=== PATIENT | female | born 2000 | race Hispanic/Latino ===

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

== ENCOUNTER 2018-03-12 04:33 | Inpatient (IN) | payer MEDICAID, OTHER ==
--- NOTE | 2018-03-12 05:10 | ED PDOC ---
Arrival/HPI - General Chief Complaint: Psychiatric Evaluation Time Seen by Provider: 03/12/18 04:43 Historian: Patient - History of Present Illness Narrative History of Present Illness (Text): 03/12/18 05:07 Sailaja Jacinto is a 17 year old female, whose past medical history includes hyperthyroidism, who presents to the emergency department complaining of depression. Patient states she has been feeling depressed for a while and has been experiencing suicidal ideation. Patient reports she wants to strangle herself with a shoestring. Patient denies any homicidal ideation, fevers, chills , chest pain, shortness of breath, abdominal pain, nausea, vomiting, diarrhea, back pain, neck pain, urinary symptoms, headache, dizziness, or any other complaint. Symptom Onset: Gradual Symptom Course: Unchanged Activities at Onset: Light Context: Home Past Medical History - Provider Review Nursing Documentation Reviewed: Yes - Cardiac Hx Cardiac Disorders: No - Pulmonary Hx Respiratory Disorders: No - Neurological Hx Neurological Disorder: No - HEENT Hx HEENT Disorder: No - Endocrine/Metabolic Hx Endocrine Disorders: Yes Hx Hyperthyroidism: Yes Hx Hypothyroidism: Yes - Hematological/Oncological Hx Blood Disorders: No - Integumentary Hx Dermatological Disorder: No - Musculoskeletal/Rheumatological Hx Musculoskeletal Disorders: No - Gastrointestinal Hx Gastrointestinal Disorders: No - Genitourinary/Gynecological Other/Comment: ectopic - Psychiatric Hx Anxiety: Yes Hx Depression: Yes Hx Substance Use: No - Anesthesia Hx Anesthesia: No Family/Social History - Physician Review Nursing Documentation Reviewed: Yes Family/Social History: Unknown Family HX Smoking Status: Never Smoked Hx Alcohol Use: No Hx Substance Use: No Allergies/Home Meds Allergies/Adverse Reactions: Allergies No Known Allergies Allergy (Verified 08/20/17 01:58) Home Medications: Home Meds Medication Instructions Recorded Confirmed No Known Home Med 03/12/18 03/12/18 Review of Systems - Physician Review All systems were reviewed & negative as marked: Yes - Review of Systems Constitutional: Normal. absent: Fevers Eyes: Normal ENT: Normal Respiratory: Normal. absent: SOB, Cough Cardiovascular: Normal. absent: Chest Pain Gastrointestinal: Normal. absent: Abdominal Pain, Diarrhea, Nausea, Vomiting Genitourinary Female: Normal. absent: Dysuria, Frequency, Hematuria, Urine Output Changes Musculoskeletal: Normal. absent: Back Pain, Neck Pain Skin: Normal. absent: Rash Neurological: Normal. absent: Headache, Dizziness Endocrine: Normal Hemo/Lymphatic: Normal Psychiatric: Depression, Suicidal Ideation Physical Exam Vital Signs Reviewed: Yes Vital Signs Temp Pulse Resp BP Pulse Ox 03/12/18 04:44 98.1 F 72 16 117/69 99 Temperature: Afebrile Blood Pressure: Normal Pulse: Regular Respiratory Rate: Normal Appearance: Positive for: Well-Appearing, Non-Toxic, Comfortable Pain Distress: None Mental Status: Positive for: Alert and Oriented X 3 - Systems Exam Head: Present: Atraumatic, Normocephalic Pupils: Present: PERRL Extroacular Muscles: Present: EOMI Conjunctiva: Present: Normal Mouth: Present: Moist Mucous Membranes Neck: Present: Normal Range of Motion Respiratory/Chest: Present: Clear to Auscultation, Good Air Exchange. No: Respiratory Distress, Accessory Muscle Use Cardiovascular: Present: Regular Rate and Rhythm, Normal S1, S2. No: Murmurs Abdomen: No: Tenderness, Distention, Peritoneal Signs Back: Present: Normal Inspection Upper Extremity: Present: Normal Inspection. No: Cyanosis, Edema Lower Extremity: Present: Normal Inspection. No: Edema Neurological: Present: GCS=15, CN II-XII Intact, Speech Normal Skin: Present: Warm, Dry, Normal Color. No: Rashes Psychiatric: Present: Alert, Oriented x 3, Normal Insight, Normal Concentration. No: Normal Affect (Flat affect) Medical Decision Making ED Course and Treatment: 03/12/18 05:07 Impression: 17 year old female complaining of depression and suicidal ideation. Plan: -- EKG -- CXR -- Labs, alcohol level -- UA, urine drug screen -- Reassess and disposition Progress Notes: Reviewed EKG, sinus bradycardia at 56 bpm. Sinus arrhythmia. No acute changes. 03/12/18 07:00 Case endorsed to /pending PES evaluation/final disposition - Lab Interpretations Lab Results: 03/12/18 05:28 03/12/18 05:28 Lab Results 03/12/18 05:28: WBC 9.9, RBC 4.28, Hgb 12.8, Hct 37.7, MCV 88.1, MCH 29.9, MCHC 34.0, RDW 13.4, Plt Count 273, MPV 9.5 03/12/18 05:28: Alcohol, Quantitative < 10 03/12/18 05:28: Sodium 140, Potassium 3.6, Chloride 103, Carbon Dioxide 27, Anion Gap 14, BUN 16, Creatinine 0.6 L, Est GFR ( Amer) > 60, Est GFR ( Non-Af Amer) > 60, Random Glucose 99, Calcium 9.3, Total Bilirubin 0.8, AST 28, ALT 16, Alkaline Phosphatase 53, Total Protein 7.5, Albumin 4.4, Globulin 3.1, Albumin/Globulin Ratio 1.4 03/12/18 05:00: Urine Color Straw, Urine Appearance Sl cloudy, Urine pH 6.0, Ur Specific [place] 1.010, Urine Protein Negative, Urine Glucose (UA) Negative, Urine Ketones Negative, Urine Blood Trace-intact H, Urine Nitrate Negative, Urine Bilirubin Negative, Urine Urobilinogen 0.2, Ur Leukocyte Esterase Small H , Urine RBC Pending, Urine WBC Pending, Urine HCG, Qual Negative - RAD Interpretation Narrative RAD Interpretations (Text): 03/12/18 06:17 CXR- No acute process Radiology Orders: 03/12/18 05:10 CHEST PORTABLE [RAD] Stat Groutman: ED Physician - EKG Interpretation Interpreted by ED Physician: Yes Type: 12 lead EKG - Scribe Statement The provider has reviewed the documentation as recorded by the Nishaibjoaquín Verma Provider Scribe Attestation: All medical record entries made by the Scribe were at my direction and personally dictated by me. I have reviewed the chart and agree that the record accurately reflects my personal performance of the history, physical exam, medical decision making, and the department course for this patient. I have also personally directed, reviewed, and agree with the discharge instructions and disposition. Disposition/Present on Arrival - Present on Arrival Any Indicators Present on Arrival: No History of DVT/PE: No History of Uncontrolled Diabetes: No Urinary Catheter: No History of Decub. Ulcer: No History Surgical Site Infection Following: None - Disposition Have Diagnosis and Disposition been Completed?: No Diagnosis: Depression, Suicidal ideation Disposition Time: 07:00 Condition: STABLE Forms: [employer] (Maldivian)
[2018-03-12 06:06] LABS: URINE BILIRUBIN NEGATIVE (NEGATIVE); URINE BLOOD TRACE-INTACT (NEGATIVE); URINE GLUCOSE (UA) NEGATIVE (NEGATIVE); URINE LEUKOCYTE ESTERASE SMALL Leu/uL (NEGATIVE); URINE PROTEIN NEGATIVE mg/dL (<30 mg/dL); URINE UROBILINOGEN 0.2 E.U./dL (<1 E.U./dL)
[2018-03-12 06:07] LABS: HEMOGLOBIN 12.8 g/dL (12.0-16.0); MEAN CELL VOLUME 88.1 fl (80.0-105.0); MEAN CORPUSCULAR HEMOGLOBIN 29.9 pg (25.0-35.0); MEAN PLATELET VOLUME 9.5 fl (7.0-11.0); RBC 4.28 10^6/uL (3.5-6.1); RED CELL DISTRIBUTION WIDTH 13.4 % (11.5-14.5); WHITE BLOOD COUNT 9.9 10^3/ul (4.5-11.0)
[2018-03-12 06:08] LABS: URINE APPEARANCE SL CLOUDY (CLEAR); URINE COLOR STRAW (YELLOW)
[2018-03-12 06:10] LABS: HCG,QUALITATIVE URINE NEGATIVE (NEGATIVE)
[2018-03-12 06:15] LABS: ALB/GLOB RATIO 1.4 (1.1-1.8); ALBUMIN 4.4 g/dL (3.0-4.8); ALT/SGPT 16 U/L (7-56); AST/SGOT 28 U/L (14-36); BLOOD UREA NITROGEN 16 mg/dL (7-21); CALCIUM 9.3 mg/dL (8.4-10.5); GFR AFRICAN-AMERICAN > 60; GFR NON-AFRICAN AMERICAN > 60
[2018-03-12 06:20] LABS: URINE BACTERIA RARE (NEG); URINE RBC 0 - 2 /hpf (0-2)
[2018-03-12 07:08] LABS: BARBITURATES, UR NEGATIVE (NEGATIVE); BENZODIAZEPINES, UR NEGATIVE (NEGATIVE); OPIATES, UR NEGATIVE (NEGATIVE); PHENCYCLIDINE, UR NEGATIVE (NEGATIVE)
--- NOTE | 2018-03-12 07:15 | ED PDOC ---
Physical Exam - Physical Exam Narrative Physical Exam (Text): 03/12/18 0800 General: alert/awake, GCS = 15, oriented x 3, resting in bed, uncomfortable, cooperative, interactive; NAD Head: NC/AT EYE: PERRLA, EOMI, sclera anicteric, no nystagmus, no photophobia Facial: WNL Oral: uvula/tongue are midline, no exudate/lesions, no drooling/stridor, no dysphonia; intact dentitions NECK: intact ROM, no midline tenderness, no nuchal rigidity, no meningeal signs ; no step off Chest: CTA b/l, no w/r/r; no tachypenia, no accessory muscle use noted Chest Wall: no focal tenderness, no gross deformities, no crepitus, no lesions/ rashes noted Cardiac: +S1, +S2, no m/r/r, no tachycardia Abdominal: +BS, soft/nd/nt, well nourished patient; no masses/rebound/guarding/ rigidity; no mcmahon's sign, no mcburney's point tenderness Extremities: intact ROM, strength 5/5 grossly intact in all limbs, neurovasc intact b/l; + ambulatory; reflex +2/2 BACK: no step off, no midline tenderness, NO crepitus, no gross deformities noted; Intact ROM SKIN: cap refill < 1 sec, no ulcerations, no petechiae, no rashes NEURO: CNII-XII WNL, no facial asymmetries, no slurr speech, oriented x 3 NIH stroke scale ~ 0 Psych: normal insight, flat affect; follows command with ease Vital Signs Reviewed: Yes Vital Signs Temp Pulse Resp BP Pulse Ox 03/12/18 07:32 97.6 F 71 16 106/63 98 03/12/18 04:44 98.1 F 72 16 117/69 99 Temperature: Afebrile Blood Pressure: Normal Pulse: Regular Respiratory Rate: Normal Appearance: Positive for: Well-Appearing, Uncomfortable Pain Distress: None Mental Status: Positive for: Alert and Oriented X 3 - Systems Exam Head: Present: Atraumatic, Normocephalic Medical Decision Making ED Course and Treatment: 03/12/18 07:15 Case endorsed to me by Dr. Gallo, pending PES/Crisis counselor for further evaluation and disposition. Patient medically cleared by previous attending. 03/12/18 09:13 [facility] pt is made aware of her medical results agrees with admission Re-evaluation Time: 09:00 Reassessment Condition: Unchanged - Lab Interpretations Lab Results: 03/12/18 05:28 03/12/18 05:28 Lab Results 03/12/18 05:28: WBC 9.9, RBC 4.28, Hgb 12.8, Hct 37.7, MCV 88.1, MCH 29.9, MCHC 34.0, RDW 13.4, Plt Count 273, MPV 9.5 03/12/18 05:28: Alcohol, Quantitative < 10 03/12/18 05:28: Sodium 140, Potassium 3.6, Chloride 103, Carbon Dioxide 27, Anion Gap 14, BUN 16, Creatinine 0.6 L, Est GFR ( Amer) > 60, Est GFR ( Non-Af Amer) > 60, Random Glucose 99, Calcium 9.3, Total Bilirubin 0.8, AST 28, ALT 16, Alkaline Phosphatase 53, Total Protein 7.5, Albumin 4.4, Globulin 3.1, Albumin/Globulin Ratio 1.4 03/12/18 05:00: Urine Opiates Screen Negative, Urine Methadone Screen Negative, Ur Barbiturates Screen Negative, Ur Phencyclidine Scrn Negative, Ur Amphetamines Screen Negative, U Benzodiazepines Scrn Negative, U Oth Cocaine Metabols Negative, U Cannabinoids Screen Negative 03/12/18 05:00: Urine Color Straw, Urine Appearance Sl cloudy, Urine pH 6.0, Ur Specific [place] 1.010, Urine Protein Negative, Urine Glucose (UA) Negative, Urine Ketones Negative, Urine Blood Trace-intact H, Urine Nitrate Negative, Urine Bilirubin Negative, Urine Urobilinogen 0.2, Ur Leukocyte Esterase Small H , Urine RBC 0 - 2, Urine WBC 1 - 3, Ur Epithelial Cells 1 - 3, Urine Bacteria Rare, Urine HCG, Qual Negative I have reviewed the lab results: Yes Interpretation: All labs normal - RAD Interpretation Narrative RAD Interpretations (Text): 03/12/18 09:13 Chest X-ray - NAD, prelim result Radiology Orders: 03/12/18 05:10 CHEST PORTABLE [RAD] Stat Insurance Underwriter: ED Physician Disposition/Present on Arrival - Present on Arrival Any Indicators Present on Arrival: No History of DVT/PE: No History of Uncontrolled Diabetes: No Urinary Catheter: No History of Decub. Ulcer: No History Surgical Site Infection Following: None - Disposition Have Diagnosis and Disposition been Completed?: Yes Diagnosis: Depression, Suicidal ideation Disposition: HOSPITALIZED Disposition Time: 09:00 Patient Plan: Admission Patient Problems: Current Active Problems Problem Status Onset Depression Acute Suicidal ideation Acute Condition: STABLE Forms: [employer] ([place])
[2018-03-12 07:33] VITALS: O2SAT 98
--- NOTE | 2018-03-12 10:00 | RAD ---
HISTORY: medical clearance COMPARISON: No prior. FINDINGS: LUNGS: No active pulmonary disease. PLEURA: No significant pleural effusion identified, no pneumothorax apparent. CARDIOVASCULAR: Normal. OSSEOUS STRUCTURES: No significant abnormalities. VISUALIZED UPPER ABDOMEN: Normal. OTHER FINDINGS: None. IMPRESSION: No active disease.
--- NOTE | 2018-03-12 10:53 | PCM.BM ---
<Basilio Worthy - Last Filed: 03/12/18 10:50> Treatment Plan Problems - Problems identified on initial assessmt DEPRESSIVE SYMPTOMS Date Initiated: 03/12/18 Time Initiated: 10:51 Assessment reference: HP, NA Status: Active SUICIDAL IDEATION Date Initiated: 03/12/18 Time Initiated: 10:51 Assessment reference: HP, Other Status: Active SOCIAL ISOLATION Date Initiated: 03/12/18 Time Initiated: 10:53 Assessment reference: HP, NA Treatment assets and liabiliti Patient Assests: adapts well, educated, motivated, physically healthy, negotiates basic needs, cognitively intact, good interpersonal skills Patient Liabilities: relationship conflicts - Milieu Protocol Maintain good personal hygiene: daily Encourage regular showers, daily Remind patient to perform daily oral care, daily Assist patient to perform ADL's Maintain personal safety: daily Educate patient to report safety concerns to staff, daily Monitor environment for contraband/sharps Medication safety: Monitor for expected outcome, potential side effects: daily, Assess barriers to learning: daily, Assess readiness for medication education: daily Discharge/Continuing Care - Education Needs Education Needs: Family Medication, Family Diagnosis/Disease Process, Family Coping Skills, Family Activities of Daily Living, Family Uses of Medical Equipment, Family Health Practices/Safety, Family Personal Hygiene/Grooming, Family Aftercare Safety Plan - Discharge Discharge Criteria: Free of Suicidal thoughts, Free of Homicidal thoughts, Free of paranoid thoughts, Free of agitation, Normal sleep pattern <Stacey Oconnor - Last Filed: 03/12/18 15:33> - Diagnosis (1) MDD (major depressive disorder) Status: Acute Interventions: 03/12/18 15:34 Psychoeducation Psychopharmacology/adjustment of medications as needed/ monitoring possible side effects Evaluate pt on daily basis Compliance with medications and follow up appointments Suicide and homicide risk assessment and prevention Relapse prevention Reduction of symptoms Improve functional status Family involvement As outpatient: cognitive behavioral therapy (2) Anxiety Status: Acute Interventions: 03/12/18 15:34 Psychoeducation Psychopharmacology/adjustment of medications as needed/ monitoring possible side effects Evaluate pt on daily basis Discussion of importance of being compliant with medications and follow up appointments Suicide and homicide risk assessment and prevention, coping strategies, safety plan Reduction of symptoms Relaxation techniques and breathing exercises Improve functional status Family involvement Cognitive behavioral therapy as outpatient <Emily Najera - Last Filed: 03/12/18 16:12> Family Contact Family involvement: Famliy/SO not involved - Goals for Treatment Patient goals for treatment: "I don't know."
[2018-03-12 11:03] LABS: HDL CHOLESTEROL 46 mg/dL (29-60)
[2018-03-12 11:14] LABS: LDL CHOLESTEROL 70 mg/dL (0-129)
[2018-03-12 11:18] LABS: FREE T4 0.69 ng/dL (0.78-2.19)
--- NOTE | 2018-03-12 11:31 | CARD ---
APPROVED REPORT EKG Measurement Heart [id number] <Conclusion> Sinus bradycardia with sinus arrhythmia Otherwise normal ECG
[2018-03-12] MEDS ORDERED: Alum-Mag Hydrox-Simethicone Susp (30 mL) PO PRN (15:13)
[2018-03-12] MEDS ORDERED: Magnesium Hydroxide Susp 30 ml UD PO PRN (15:13)
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
[2018-03-12 16:02] VITALS: BMI 22.3
--- NOTE | 2018-03-13 10:23 | PCM.PYCHPN ---
Psychiatric Progress Note - Psychiatric Progress Note Patient seen today, length of contact: 25 min Problems Identified/Issues Discussed: I reviewed assessment. 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 I reviewed recent notes and met with patient at bedside. Grooming is fair and she presents as alert and well-oriented to month, year, location and circumstances. Patient indicates that she is feeling good however mood is incongruent and constricted. Thought process is coherent and goal-directed. Patient reports that she is tolerating her medications thus far and denies any new discomfort or pain. Denies issues with sleep last night. Staff notes indicate that patient has been guarded, seclusive and generally looks depressed. She did not attend group. There were no behavioral issues overnight. Diagnostic Results: r/o panic disorder r/o mood disorder due to a C (hypothyroidism) Mental Status Examination - Cognitive Function Orientation: Person, Place, Situation - Mood Mood: Depressed - Affect Affect: Flat - Formal Thought Process Formal Thought Process: No Impairment - Homicidal Ideation Homicidal Ideation: No Goal/Treatment Plan - Goal/Treatment Plan Progress Toward Problem(s) and Goals/Treatment Plan: * c/w current tx and plan * Weekend lab noted below: 03/13/18 08:00 Fasting Glucose 99 * Vitals reviewed and noted below: Selected Entries 03/12/18 03/12/18 03/12/18 09:20 15:18 15:45 Temperature 98.4 F Pulse Rate 60 71 Pulse Rate [ 73 Radial] Respiratory 20 Rate Blood Pressure 107/58 L 97/57 L
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
[2018-03-14] MEDS: Levothyroxine 25 MCG TAB PO SCH ×2 (07:27→12:42)
--- NOTE | 2018-03-14 10:42 | CARD ---
APPROVED REPORT EKG Measurement Heart [id number] NM [id number] <Conclusion> Normal sinus rhythm NSSTW changes, new
--- NOTE | 2018-03-14 15:00 | PCM.PYCHPN ---
Psychiatric Progress Note - Psychiatric Progress Note Patient seen today, length of contact: 25 min Problems Identified/Issues Discussed: I have reviewed assessment. 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 I reviewed recent notes and met with patient at bedside again. Grooming is fair and she presents as alert and well-oriented to month, year, location and circumstances. Patient indicates that she is feeling good and reports improvement in mood and emotional control. Affect remains constricted. Thought process is coherent and goal-directed. There is no issue with disorganization. Patient reports that she is tolerating her medications thus far and denies any new discomfort or pain. Denies issues with sleep over the weekend. Staff notes indicate that patient has been guarded, seclusive and generally looks depressed. She is, however, demonstrating improved perspective and judgment about her current stressors. There were no behavioral issues over the weekend. Diagnostic Results: r/o panic disorder r/o mood disorder due to a C (hypothyroidism) Mental Status Examination - Cognitive Function Orientation: Person, Place, Situation - Mood Mood: Depressed - Affect Affect: Flat - Formal Thought Process Formal Thought Process: No Impairment - Homicidal Ideation Homicidal Ideation: No Goal/Treatment Plan - Goal/Treatment Plan Progress Toward Problem(s) and Goals/Treatment Plan: * c/w current tx and plan * Appreciate f/u by Dr. Brady on 03/13/18: Restarted Synthroid 25mcg PO Daily and have ordered TSH. Will f/u on EKG results. Recommend that patient should f/u with PMD and have TFTs done. * Weekend lab noted below: 03/13/18 08:00 Fasting Glucose 99 * Vitals reviewed and noted below: Selected Entries 03/14/18 07:18 Temperature 97.6 F Pulse Rate 63 Respiratory 20 Rate Blood Pressure 96/60 L
[2018-03-15 06:39] VITALS: BP 95/53; PULSE 59; RESP 16; TEMP 97.9
[2018-03-15] MEDS: Levothyroxine 25 MCG TAB PO SCH (07:07)
[2018-03-15] MEDS ORDERED: Levothyroxine 25 MCG TAB PO SCH (14:38)
--- NOTE | 2018-03-15 15:58 | CP.PCM.PN ---
<Malu Baum - Last Filed: 03/15/18 15:52> Subjective - Date & Time of Evaluation Date of Evaluation: 03/15/18 Time of Evaluation: 15:52 - Subjective Subjective: Malu Baum, PGY1, Progress Note for Dr Beltran: Patient seen and examined at bedside. No acute events overnight. Denies fever, chills, depression, hair loss, abdominal pain, leg swelling. Objective - Vital Signs/Intake and Output Vital Signs (last 24 hours): Temp Pulse Resp BP Pulse Ox 97.9 F 59 L 16 95/53 L 98 03/15/18 06:38 03/15/18 06:38 03/15/18 06:38 03/15/18 06:38 03/12/18 09:20 - Constitutional Appears: Non-toxic, No Acute Distress - Head Exam Head Exam: ATRAUMATIC, NORMOCEPHALIC - Eye Exam Eye Exam: EOMI, PERRL. absent: Conjunctival injection, Nystagmus, Scleral icterus Pupil Exam: NORMAL ACCOMODATION, PERRL. absent: Fixed, Irregular, Miosis, Unequal - ENT Exam ENT Exam: Mucous Membranes Moist - Neck Exam Neck Exam: Full ROM - Respiratory Exam Respiratory Exam: Clear to Ausculation Bilateral, NORMAL BREATHING PATTERN. absent: Accessory Muscle Use, Rales, Rhonchi, Wheezes, Respiratory Distress, Stridor - Cardiovascular Exam Cardiovascular Exam: RRR, +S1, +S2. absent: Murmur - GI/Abdominal Exam GI & Abdominal Exam: Soft, Normal Bowel Sounds. absent: Distended, Firm, Rigid , Tenderness, Mass, Organomegaly, Pulsatile Mass, Rebound - Extremities Exam Extremities Exam: Normal Inspection. absent: Calf Tenderness, Pedal Edema - Back Exam Back Exam: NORMAL INSPECTION - Neurological Exam Neurological Exam: Alert, Awake, Oriented x3 - Psychiatric Exam Psychiatric exam: Normal Affect, Normal Mood - Skin Skin Exam: Dry, Normal Color, Warm Assessment and Plan - Assessment and Plan (Free Text) Assessment: 17 year old female with a past medical history of hypothryoidism and depression who was admitted to Psychiatric unit for attempted suicide. Pt found to have abnormal thyroid function studies 2/2 medication noncompliance: Hypothyroidism: - TSH: 41.5 - Free T4: 0.69 - Patient stopped taking her medications for the past 1.5 years secondary to the side effects (weight gain). - Cont with Synthroid 25mcg PO Daily. Can increase to 50 mcg daily. Recheck thyroid studies in 4-6 weeks with primary doctor, [facility]. - PTH normal Depression: - Management per Psychiatry. Suicidal ideation: - Managment per Psychiatry. Medicine will sign off now. Please reconsult us as necessary. Case seen and discussed with Dr Beltran. Malu Baum, PGY1 <Fabby Beltran - Last Filed: 03/15/18 18:44> Objective - Vital Signs/Intake and Output Vital Signs (last 24 hours): Temp Pulse Resp BP Pulse Ox 97.9 F 59 L 16 95/53 L 98 03/15/18 06:38 03/15/18 06:38 03/15/18 06:38 03/15/18 06:38 03/12/18 09:20 Attending/Attestation - Attestation I have personally seen and examined this patient.: Yes I have fully participated in the care of the patient.: Yes I have reviewed all pertinent clinical information, including history, physical exam and plan: Yes Notes (Text): 03/15/18 18:41 Attending note; Patient seen and examined with resident in psychiatric floor. patient is alert, awake and oriented. Denies any depression. Patient with a history of hypothyroidism. Patient stopped taking Synthroid over 1 year ago. Currently started on 25 of Synthroid. Increased to 50 g. Patient will follow-up with [facility] clinic upon discharge/ or PMD of choice. Patient is strongly advised to follow-up with lab work in 6 weeks. Patient agreed with the above recommendation. patient is medically stable. Please reconsult as needed. 03/15/18 18:43
[2018-03-16] MEDS ORDERED: Levothyroxine 50 MCG TAB PO SCH (06:00)
== END 2018-03-15 14:58 | disposition home or self-care (01) | DRG 881 ==
LOC: ED 04:33 → ERH 09:09 → PSYC 09:55
PROVIDERS: ADMIT Psychiatry & Neurology Psychiatry; ATTEND Psychiatry & Neurology Psychiatry
PROC: GZ3ZZZZ Medication Management (ICD-10-PCS; principal; 2018-03-12)
DX: F32.9 Major depressive disorder, single episode, unspecified (principal); R45.851 Suicidal ideations; E03.9 Hypothyroidism, unspecified; Z91.14 Patient's other noncompliance with medication regimen